=== PATIENT | female | born 1950 | race Hispanic/Latino ===

== ENCOUNTER 2017-04-09 08:30 | Outpatient (CLI) | payer MEDICARE | END 2017-04-09 08:31 | disposition home or self-care (01) | LOC: BICULT 08:30 | PROVIDERS: ATTEND Internal Medicine Nephrology | DX: I12.9 Hypertensive chronic kidney disease with stage 1 through stage 4 chronic kidney disease, or unspecified chronic kidney disease (principal); N18.3 Chronic kidney disease, stage 3 (moderate); N28.89 Other specified disorders of kidney and ureter | CPT/HCPCS: 76700; 76770 ==

== ENCOUNTER 2017-05-12 21:35 | Emergency (ER) | payer MEDICARE ==
--- NOTE | 2017-05-12 22:25 | RAD ---
LEFT HAND THREE VIEWS: History: Fall, left hand pain. FINDINGS/IMPRESSION: There are post op changes of plate and screws in the distal radius. Degenerative changes are seen in the left hand. There is a fracture involving the ulnar aspect of the base of the fourth metacarpal. N o significant displacement is seen. POS: [facility]
--- NOTE | 2017-05-12 22:26 | RAD ---
PA CHEST LEFT RIB SERIES: History: Trauma. Left sided chest pain. FINDINGS/IMPRESSION: The heart size is normal. The lungs are expanded without focal areas of consolidation, pneumothorax, or pleural effusions. No left sided rib fracture is seen. POS: [facility]
[2017-05-12] MEDS ORDERED: Ibuprofen 800 MG TAB ONE (23:38)
[2017-05-12] MEDS ORDERED: traMADol HCl 50 MG TAB ONE (23:38)
== END 2017-05-12 23:45 | disposition home or self-care (01) ==
LOC: ERS 21:35
DX: S62.345A Nondisplaced fracture of base of fourth metacarpal bone, left hand, initial encounter for closed fracture (principal); E05.90 Thyrotoxicosis, unspecified without thyrotoxic crisis or storm; F41.9 Anxiety disorder, unspecified; I10 Essential (primary) hypertension; M10.9 Gout, unspecified; M19.90 Unspecified osteoarthritis, unspecified site; W01.0XXA Fall on same level from slipping, tripping and stumbling without subsequent striking against object, initial encounter
CPT/HCPCS: 26605

== ENCOUNTER 2017-05-16 15:10 | Emergency (ER) | payer MEDICARE | END 2017-05-16 17:27 | disposition home or self-care (01) | LOC: ERS 15:10 | DX: R07.89 Other chest pain (principal); E05.90 Thyrotoxicosis, unspecified without thyrotoxic crisis or storm; M19.90 Unspecified osteoarthritis, unspecified site; I12.9 Hypertensive chronic kidney disease with stage 1 through stage 4 chronic kidney disease, or unspecified chronic kidney disease; N18.9 Chronic kidney disease, unspecified; F41.9 Anxiety disorder, unspecified | CPT/HCPCS: 99283 ==

== ENCOUNTER 2019-08-04 08:50 | Outpatient (CLI) | payer MEDICARE ==
--- NOTE | 2019-08-04 09:03 | RAD ---
EXAM: CHEST TWO VIEWS 08/04/2019 9:00 AM HISTORY: Fever and cough COMPARISON: July 28, 2016 FINDINGS: Lungs: There is interstitial and airspace opacity in the left lower lobe which is new. Right lung is clear. Heart: Normal in size and contour. Pulmonary Vessels: Normal. Costophrenic Angles: Clear. Pneumothorax: None. Osseous Structures: Intact. Additional Findings: None. IMPRESSION: New interstitial and airspace opacity in the left lower lobe. This is nonspecific and can be related to subsegmental volume loss; however, this can be seen with atypical infectious processes such as viral pneumonia. Recommend correlation with the clinical examination and radiographic follow-up to re solution.
== END 2019-08-04 08:51 | disposition home or self-care (01) ==
LOC: RAD-FRANK 08:50
PROVIDERS: ATTEND Nurse Practitioner Family
DX: R07.89 Other chest pain (principal); R91.8 Other nonspecific abnormal finding of lung field
CPT/HCPCS: 71046

== ENCOUNTER 2020-08-06 09:24 | Outpatient (CLI) | payer MEDICARE ==
[2020-08-06 10:23] LABS: #Basophils 0.1 10x3/uL (0.0-0.2); #Eosinphils 0.3 10x3/uL (0.0-0.5); #Monocytes 0.5 10x3/uL (0.0-1.1); #Neutrophils 5.1 10x3/uL (1.5-8.4); %Basophils 0.9 % (0.0-2.0); %Eosinophils 3.2 % (0.0-6.0); %Lymphocytes 26.4 % (18.0-47.0); %Monocytes 5.8 % (0.0-10.0); %Neutrophils 63.3 % (40.0-75.0); Hemoglobin 11.3 g/dL (12.0-15.5); Mean Corpuscular HGB CONC 32.2 g/dL (32.0-36.0); Mean Corpuscular Hemoglobin 27.6 pg (27.0-33.0); Mean Corpuscular Volume 85.8 fl (81.6-98.3); Mean Platelet Volume 10.9 fl (7.4-10.4); Platelet Count 287 10x3/uL (150-450); RBC Distribution Width 15.9 % (11.5-14.5); Red Blood Cell (RBC) Count 4.09 10x6/uL (3.90-5.03); White Blood Cell (WBC) Count 8.1 10x3/uL (3.5-10.5)
[2020-08-06 10:39] LABS: ALT (SGPT) 12 U/L (8-55); AST (SGOT) 17 U/L (5-34); Albumin 4.3 g/dL (3.4-4.8); Alkaline Phosphatase 117 U/L (40-110); Anion Gap 14 mmol/L (10-20); BUN (Urea Nitrogen) 21 mg/dL (9.8-20.1); Bilirubin, Total 0.5 mg/dL (0.2-1.2); Calc. Creatinine Clearance 0 mL/min (70-130); Calcium 9.2 mg/dL (7.8-10.44); Carbon Dioxide 24 mmol/L (23-31); Chloride 108 mmol/L (98-107); Globulin 2.7 g/dL (2.4-3.5); Glucose 116 mg/dL (83-110); Potassium 4.4 mmol/L (3.5-5.1); Sodium 142 mmol/L (136-145)
[2020-08-07 02:03] LABS: SARS-CoV-2 PCR by NAA Not Detected (NotDetected)
== END 2020-08-06 09:25 | disposition home or self-care (01) ==
LOC: LABBT 09:24
PROVIDERS: ATTEND Specialist
DX: Z01.818 Encounter for other preprocedural examination (principal); T56.0X1A Toxic effect of lead and its compounds, accidental (unintentional), initial encounter; K80.10 Calculus of gallbladder with chronic cholecystitis without obstruction; R10.13 Epigastric pain; M10.10 Lead-induced gout, unspecified site; I10 Essential (primary) hypertension; E11.9 Type 2 diabetes mellitus without complications; R10.11 Right upper quadrant pain; Z20.822 Contact with and (suspected) exposure to COVID-19
CPT/HCPCS: 80053; 85025; 93005; U0003; U0005; 87635; 93010

== ENCOUNTER 2020-08-09 09:48 | Day surgery (SDC) | payer MEDICARE ==
[2020-08-08 10:14] VITALS: BMI 42.6
[2020-08-09] MEDS ORDERED: Acetaminophen 500 MG TAB ONE (11:18)
[2020-08-09] MEDS ORDERED: Ketorolac Tromethamine 30 MG/ML VIAL ONE (11:18)
[2020-08-09] MEDS ORDERED: Levofloxacin 500 mg/D5W 100 ml Premix Bag ONE (11:18)
[2020-08-09] MEDS ORDERED: Scopolamine 1.5 mg/72 hour Patch ONE (11:23)
[2020-08-09] MEDS ORDERED: Bupivacaine PF 0.5% 30 ML VIAL ONE (12:52)
[2020-08-09] MEDS ORDERED: EPINEPHrine 1 MG/ML AMP ONE (12:52)
[2020-08-09] MEDS ORDERED: Fentanyl 100 MCG/2 ML VIAL ONE ×4 (12:56→15:35)
[2020-08-09] MEDS ORDERED: Ondansetron PF 4 MG/2 ML Vial ONE (13:12)
[2020-08-09] MEDS ORDERED: Rocuronium Bromide 10 MG/ML (10ML VIAL) ONE (13:12)
[2020-08-09] MEDS ORDERED: Lidocaine 1% PF 5 ML VIAL ONE (13:12)
[2020-08-09] MEDS ORDERED: PROPOFOL 200 MG/20 ML VIAL ONE (13:12)
[2020-08-09] MEDS ORDERED: traMADol HCl 50 MG TAB ONE (16:12)
== END 2020-08-09 17:35 | disposition home or self-care (01) ==
LOC: SDC 09:48
PROVIDERS: ATTEND Specialist
PROC: 0FT44ZZ Resection of Gallbladder, Percutaneous Endoscopic Approach (ICD-10-PCS; principal; 2020-08-09)
DX: K80.10 Calculus of gallbladder with chronic cholecystitis without obstruction (principal); E11.9 Type 2 diabetes mellitus without complications; M19.90 Unspecified osteoarthritis, unspecified site; T56.0X1A Toxic effect of lead and its compounds, accidental (unintentional), initial encounter; M10.10 Lead-induced gout, unspecified site; I10 Essential (primary) hypertension; E66.9 Obesity, unspecified; Z68.41 Body mass index [BMI] 40.0-44.9, adult; Z79.82 Long term (current) use of aspirin; Z79.84 Long term (current) use of oral hypoglycemic drugs; Z79.899 Other long term (current) drug therapy; Z88.0 Allergy status to penicillin; Z88.5 Allergy status to narcotic agent
CPT/HCPCS: 88304; J0171; J1885; J1956; J2405; J2704; J3010; S0020

== ENCOUNTER 2020-12-28 21:36 | Emergency (ER) | payer MEDICARE ==
[~2020-12-28 21:36] MED LIST: Iopamidol-370 76% 500 ML 1 ML ONE
[2020-12-28 22:12] LABS: #Basophils 0.1 thou/uL (0.0-0.2); #Eosinphils 0.2 thou/uL (0.0-0.7); #Lymphocytes 1.6 thou/uL (1.20-3.40); #Monocytes 0.4 thou/uL (0.11-0.59); #Neutrophils 3.7 thou/uL (1.40-6.50); %Basophils 0.9 % (0.0-1.0); %Eosinophils 3.2 % (0.0-10.0); %Lymphocytes 26.9 % (21.0-51.0); %Monocytes 6.7 % (0.0-10.0); %Neutrophils 62.3 % (42.0-75.0); Hemoglobin 10.8 g/dL (12.0-16.0); Mean Corpuscular HGB CONC 33.2 g/dL (32.0-36.0); Mean Corpuscular Volume 87.5 fL (78.0-98.0); Mean Platelet Volume 8.6 fL (7.4-10.4); Platelet Count 237 thou/uL (130-400); RBC Distribution Width 13.9 % (11.5-14.5); Red Blood Cell (RBC) Count 3.72 mill/uL (4.20-5.40); White Blood Cell (WBC) Count 5.9 thou/uL (4.8-10.8)
[2020-12-28] MEDS ORDERED: Aspirin Chewable 81 MG TAB ONE (22:21)
[2020-12-28] MEDS ORDERED: Famotidine 20 MG TAB ONE (22:21)
[2020-12-28 22:31] LABS: ALT (SGPT) 148 U/L (8-55); AST (SGOT) 236 U/L (5-34); Albumin 3.9 g/dL (3.4-4.8); Alkaline Phosphatase 334 U/L (40-110); Anion Gap 15 mmol/L (10-20); BUN (Urea Nitrogen) 17 mg/dL (9.8-20.1); Bilirubin, Total 0.7 mg/dL (0.2-1.2); Calc. Creatinine Clearance 0 mL/min (70-130); Calcium 9.1 mg/dL (7.8-10.44); Carbon Dioxide 20 mmol/L (23-31); Chloride 109 mmol/L (98-107); Globulin 2.9 g/dL (2.4-3.5); Glucose 156 mg/dL (83-110); Potassium 4.5 mmol/L (3.5-5.1); Protein, Total 6.8 g/dL (5.8-8.1); Sodium 139 mmol/L (136-145)
== END 2020-12-29 02:19 | disposition home or self-care (01) ==
LOC: ERS 21:36
DX: R07.81 Pleurodynia (principal); Z79.84 Long term (current) use of oral hypoglycemic drugs; Z79.899 Other long term (current) drug therapy; Z79.82 Long term (current) use of aspirin; I12.9 Hypertensive chronic kidney disease with stage 1 through stage 4 chronic kidney disease, or unspecified chronic kidney disease; N18.9 Chronic kidney disease, unspecified; M10.9 Gout, unspecified; E05.90 Thyrotoxicosis, unspecified without thyrotoxic crisis or storm; M19.90 Unspecified osteoarthritis, unspecified site
CPT/HCPCS: 36415; 71045; 71275; 80053; 83690; 84484; 85025; 85379; 93005; Q9967

== ENCOUNTER 2021-01-17 09:16 | Outpatient (CLI) | payer MEDICARE | END 2021-01-17 09:17 | disposition home or self-care (01) | LOC: ULT 09:16 | PROVIDERS: ATTEND Student in an Organized Health Care Education/Training Program | DX: R74.8 Abnormal levels of other serum enzymes (principal); K76.0 Fatty (change of) liver, not elsewhere classified; N28.89 Other specified disorders of kidney and ureter; Z90.49 Acquired absence of other specified parts of digestive tract | CPT/HCPCS: 76700 ==

== ENCOUNTER 2022-06-16 08:57 | Outpatient (CLI) | payer OTHER | END 2022-06-16 08:58 | disposition home or self-care (01) | LOC: BICMAMMO 08:57 | PROVIDERS: ATTEND Family Medicine | DX: Z12.31 Encounter for screening mammogram for malignant neoplasm of breast (principal) | CPT/HCPCS: 77063; 77067 ==

== ENCOUNTER 2022-07-15 13:02 | Outpatient (CLI) | payer OTHER | END 2022-07-15 13:03 | disposition home or self-care (01) | LOC: ULT 13:02 | PROVIDERS: ATTEND Family Medicine | DX: R01.1 Cardiac murmur, unspecified (principal) | CPT/HCPCS: 93306 ==

== ENCOUNTER 2024-05-19 09:38 | Outpatient (CLI) | payer OTHER | END 2024-05-19 09:39 | disposition home or self-care (01) | LOC: BICULT 09:38 | PROVIDERS: ATTEND Physician Assistant Medical | DX: R10.10 Upper abdominal pain, unspecified (principal); K76.0 Fatty (change of) liver, not elsewhere classified | CPT/HCPCS: 76705 ==

== ENCOUNTER 2024-12-07 15:09 | Outpatient (CLI) | payer OTHER | END 2024-12-07 15:10 | disposition home or self-care (01) | LOC: BICMAMMO 15:09 | PROVIDERS: ATTEND Nurse Practitioner Family | DX: E55.9 Vitamin D deficiency, unspecified (principal); R01.1 Cardiac murmur, unspecified; M81.0 Age-related osteoporosis without current pathological fracture | CPT/HCPCS: 77080 ==